=== PATIENT | female | born 1990 | race Caucasian/White ===

== ENCOUNTER 2017-07-31 18:01 | Emergency (ER) | payer MEDICAID, SELFPAY ==
[2017-07-31 18:02] VITALS: BP 145/74; PULSE 74; RESP 15; TEMP 36.7; O2SAT 100; BMI 25.7
--- NOTE | 2017-07-31 18:13 | ED.DCSUM_ITS ---
- ER Visit Summary Date of Service: 07/31/17 Chief Complaint: [] Vertigo History of Present Illness: The patient is a 26 F [complaining of vertigo since earlier today. She was at a music festival for the last 3 days. The room is been spinning with movements of her head. She took meclizine this morning and afternoon with good relief. She wanted to make sure her eardrums were okay. She still has some mild residual vertigo. Denies any other symptoms.] Physical Examination: [] Vital signs reviewed General: Well-nourished well-developed Head: Normocephalic atraumatic Eyes: Pupils equal round and reactive to light extraocular movements intact ENT: TMs clear no hemotympanum no trauma. TMs appear normal bilateral Neck: Nontender full range of motion Cardiovascular: Regular rate rhythm no murmurs normal S1-S2 Respiratory: No distress clear to auscultation bilaterally chest nontender Abdomen: Soft nontender nondistended normal bowel sounds no masses Back: Nontender no CVA tenderness Extremities: Nontender active range of motion ?4 extremities no trauma Skin: Normal color no trauma Neuro alert oriented cranial nerves II through XII intact normal strength sensation reflexes Test Results: [] Emergency Department Course and Treatment: [] Patient given 1 dose of Valium. Last year she was here for the same and volume meclizine combination helped. This is peripheral in nature. The music could have brought this on as well. It could be had otolith. I do not feel she needs imaging studies. Will follow- up. Treatment Plan: [] Disposition: [] Impression: [] Acute peripheral vertigo This note was generated with [employer] dictation software. It may contain incorrect words, spelling, and punctuation that were not noted in review of the chart prior to signing ED Disposition - Plan for ED Patient: Chief Complaint: Dizziness Referrals: Unique Combs MD [Primary Care Provider] -
--- NOTE | 2017-07-31 18:13 | ED.DEP ---
ED Disposition - Plan for ED Patient: Disposition: Home or Assisted Living Chief Complaint: Dizziness Instructions: ED BPV Vertigo Referrals: Unique Combs MD [Primary Care Provider] -
[2017-07-31] MEDS: diazePAM 5 MG Tablet PO (18:25)
== END 2017-07-31 18:26 | disposition home or self-care (01) ==
PROVIDERS: Emergency Provider Emergency Medicine; Family Provider Internal Medicine; PCP Internal Medicine
DX: H81.399 Other peripheral vertigo, unspecified ear (principal)
CPT/HCPCS: 99283

== ENCOUNTER 2017-10-06 05:54 | Emergency (ER) | payer SELFPAY ==
[2017-10-06 05:55] VITALS: BP 124/73; PULSE 78; RESP 15; TEMP 36.7; O2SAT 100; BMI 27.3
[2017-10-06] MEDS: Aspirin 81 MG TAB.CHEW 324 MG PO (06:10)
[2017-10-06 06:15] LABS: Absolute Lymphocyte Count 2.31 X10^3/ul (0.83-4.51); Basophil# 0.04 X10^3/uL; Basophil% 0.4 % (0-1); Eosinophil# 0.15 X10^3/uL; Eosinophils% 1.6 % (0-5); Hematocrit 41.7 % (37-47); Hemoglobin 13.9 g/dl (12.0-15.0); Lymphocyte # 2.31 X10^3/ul (4.0); Lymphocyte % 25.4 % (19-41); Mean Corp Hgb Conc 33.3 g/gl (32-36); Mean Corpuscular Hgb 29.3 pg (27.0-32.0); Mean Corpuscular Volume 87.8 fL (81-99); Mean Platelet Vol. 9.7 fl (6.2-12.0); Monocyte% 6.6 % (0-10); Neutrophil % 65.9 % (47-70); Platelet Count 244 K/mm3 (150-450); RBC Distribution Width CV 13.1 % (11.6-14.6); RBC Distribution Width SD 41.8 fl (35.1-43.9); Red Blood Count 4.75 M/mm3 (4.2-5.4); White Blood Count 9.1 K/mm3 (4.4-11.0)
[2017-10-06 06:20] LABS: POSITIVE COUNT NO; POSITIVE DIFFERENTIAL NO; POSITIVE MORPHOLOGY NO
[2017-10-06 06:27] LABS: D-Dimer Quantitative (DVT/PE) 0.41 FEU/ug/m (0.27-0.49)
[2017-10-06 06:30] LABS: Anion Gap 9 (5-15); BUN 12 mg/dL (7-18); BUN/Creat Ratio 17.5 RATIO (10-20); Calcium,Total 9.2 mg/dL (8.5-10.1); Chloride 107 mmol/L (98-107); Creatinine, Serum 0.68 mg/dL (0.55-1.02); EST Glomerular Filtration Rate 109 mL/min (>60); Est Glom Filt Rate - Afr Amer 132 mL/min (>60); Estimated Creatinine Clearance 98.29 ml/min; Glucose 98 mg/dL (74-106); Potassium 3.8 mmol/L (3.5-5.1); Sodium Level 140 mmol/L (136-145)
--- NOTE | 2017-10-06 06:34 | ED.VISSUMM ---
- ER Visit Summary Date of Service: 10/06/17 Chief Complaint: [Chest pain] History of Present Illness: The patient is a 26 F [presents to the emergency department complaint of chest pain that started about an hour prior to coming in. Patient describes a sharp stabbing pain in the left side of her chest, radiated towards the upper chest. Patient felt somewhat short of breath with it. Pain was worse with breathing. Initially the pain was severe and she got very nervous and scared. Patient states the pain is now just a mild dull ache that she rates a 3 out of 10. Patient has had chest pains in the past with anxiety attacks. Patient denies recent travel or surgery. There is no family history of heart disease.] Physical Examination: [HEENT-PERRLA, EOMI. Cranial nerves II through XII grossly intact. TMs clear. Mucous membranes moist. No adenopathy. Cardiovascular-regular rate and rhythm without murmur or ectopy Lungs-clear to auscultation, chest wall stable without crepitus or subcu emphysema Abdomen-normoactive bowel sounds, soft, nontender, no rebound or rigidity, no peritoneal signs. Extremities-intact ?4, normal range of motion, normal pulses, atraumatic] Test Results: [EKG obtained on arrival showed a sinus rhythm with a ventricular rate of 66 bpm with occasional PACs. CBC with it was normal. Chemistries were normal. Troponin was less than 0.015. D-dimer was normal at 0.41. Chest x-ray was normal.] Emergency Department Course and Treatment: [Patient did not want anything for her discomfort. Patient has no risk factors for coronary artery disease. I feel patient can be safely discharged home. Patient to follow-up with her primary care physician 3-5 days.] Treatment Plan: [Follow-up with primary care physician 3-5 days] Disposition: [Discharged home in stable condition] Impression: [Chest wjhq-vvqmtqhu-nuqsqzgo uncertain] This note was generated with [employer] software. It may contain incorrect words, spelling, and punctuation that were not noted in review of the chart prior to signing ED Disposition - Plan for ED Patient: Chief Complaint: Chest Pain Referrals: Unique Combs MD [Primary Care Provider] -
--- NOTE | 2017-10-06 06:37 | ED.DEP ---
ED Disposition - Plan for ED Patient: Chief Complaint: Chest Pain Instructions: ED Chest Pain Atypical Unkn Cause Referrals: Unique Combs MD [Primary Care Provider] - 3-5 Days
[2017-10-06 06:53] VITALS: BP 119/86; PULSE 77; RESP 16; O2SAT 100
== END 2017-10-06 06:53 | disposition home or self-care (01) ==
LOC: ED 06:18
PROVIDERS: Emergency Provider Emergency Medicine; Family Provider Internal Medicine; PCP Internal Medicine
DX: R07.89 Other chest pain (principal); R06.00 Dyspnea, unspecified; I49.1 Atrial premature depolarization; J45.909 Unspecified asthma, uncomplicated; F41.9 Anxiety disorder, unspecified
CPT/HCPCS: 71045; 80048; 84484; 85025; 85379; 93005; 99285; A4216

== ENCOUNTER 2018-08-31 16:20 | Emergency (ER) | payer OTHER, MEDICAID, SELFPAY ==
[2018-08-31 16:20] VITALS: BP 138/86; PULSE 112; RESP 18; TEMP 36.2; O2SAT 98; BMI 30.1
--- NOTE | 2018-08-31 16:23 | EKG12_ITS ---
Test Reason : PALPITATIONS Blood Pressure : / mmHG Vent. Rate : 090 BPM Atrial Rate : 090 BPM P-R Int : 134 ms QRS Dur : 082 ms QT Int : 352 ms P-R-T Axes : 041 065 040 degrees QTc Int : 430 ms Normal sinus rhythm Normal ECG Confirmed by GURINDER CANCINO, SHRUTHI ([id number]), editorial cartoonist SIMEON SAENZ ([id number]) on 09/04/2018 12:54:31 PM Referred By: BB Confirmed By:SHRUTHI FAIRCHILD MD
--- NOTE | 2018-08-31 17:10 | ED.VIS.GEN ---
History of Present Illness Chief Complaint: Palpitations Informant: Patient Onset: Month(s) - several Context: Sudden Onset Timing: Intermittent, Lasts - 20-30 min today Quality: heart skipping Location: chest Current Severity: gone Maximum Severity: Moderate Worsened by: nothing in particular Relieved by: nothing in particular Associated Symptoms: lightheaded today Narrative: Patient has been having these symptoms intermittently, associated with no lightheadedness or chest discomfort or dyspnea, but today it was more persistent and making her feel lightheaded. She called her OB and was referred to the emergency department. She has never had this prior to being , she is 38 weeks, feeling the baby move, has had no complications with her so far, and has no pelvic or abdominal symptoms at this time. She states on the way to the ER, the palpitations stopped and she now feels back to normal. She has no known history of heart problems. - Past Medical History (1) Asthma Status: Chronic Past Medical History - Allergies and Home Meds Allergies/Adverse Reactions: Allergies azithromycin [From Zithromax Z-Jay] Allergy (Verified 08/31/18 16:22) Rash Primary Care Physician: Unique Combs MD [Primary Care Provider] - Lives: With Family Smoking Status: Never smoker Review of Systems General: Denies: Chills, Fever, Sweats Eyes: Denies: Visual changes - bilaterally, Diplopia ENT: Denies: Rhinorrhea, Sore throat Cardiovascular: Reports: Palpitations. Denies: Chest pain Respiratory: Denies: Dyspnea, Cough, Dyspnea on exertion Gastrointestinal: Denies: Abdominal pain, Nausea, Vomiting, Diarrhea, Melena, Hematochezia Genitourinary: Denies: Dysuria, Hematuria, Frequency Musculoskeletal: Denies: Back pain, Swelling, Extremity Pain Skin: Denies: Rash, Wounds Neurological: Denies: Headache, Weakness, Numbness Physical Exam Vital Signs/Narrative: Vital Signs Temp Pulse Resp BP Pulse Ox 08/31/18 16:20 97.1 F L 112 H 18 138/86 H 98 Inital Vital Signs reviewed: Yes General: Well nourished, Well developed, No Acute Distress Head: Normocephalic, Atraumatic Eyes: Perrl, EOMI ENT: Moist mucous membranes, No rhinorrhea Neck: Supple, Nontender, No JVD Cardiovascular: Regular rate, Regular rhythm, No murmurs, Normal S1, Normal S2 Respiratory: No distress, CTA bilaterally, Chest nontender Abdomen: Soft, Nontender, Normal bowel sounds, - - Gravid uterus, nontender Back: Nontender, Normal Inspection Extremities: Nontender, No edema. Negative for: Calf Tenderness Skin: Normal color, No rash, No Trauma Neurological: Alert, Oriented x3, Cranial nerves II-XII grossly intact, Normal Strength, Normal Sensation Psychological: Normal affect, Normal Mood Diagnostic/Tx/Re-eval Laboratory Results 08/31/18 08/31/18 17:30 17:30 WBC 10.9 RBC 4.30 Hgb 12.1 Hct 37.1 MCV 86.3 MCH 28.1 MCHC 32.6 RDW Std Deviation 49.1 H RDW Coeff of Eliseo 15.6 H Plt Count 205 MPV 9.6 Immature Gran % (Auto) 1.100 H Neut % (Auto) 78.9 H Lymph % (Auto) 13.8 L Moore % (Auto) 5.5 Eos % (Auto) 0.5 Baso % (Auto) 0.2 Absolute Neuts (auto) 8.6 H Absolute Lymphs (auto) 1.51 Absolute Nucleated RBC 0.00 Nucleated RBC % 0 Sodium 136 Potassium 3.6 Chloride 106 Carbon Dioxide 22.0 Anion Gap 8 BUN 5 L Creatinine 0.63 Estim Creat Clear Calc 109.98 Est GFR (MDRD) Af Amer 143 Est GFR (MDRD) Non-Af 118 BUN/Creatinine Ratio 7.9 L Glucose 116 H Calcium 9.3 - Rhythm Strip Rhythm Strip: Sinus Rhythm Rate: 90 Ectopy: None - EKG Initial EKG Interpretation: Sinus Rhythm, No Acute Injury Pattern - No ectopy. Normal axis. Normal EKG. Prior: Unchanged - Medical Decision Making Patient had no symptoms while she was in the emergency department, she did maintain on telemetry. Her EKG is normal. Her letter lites are normal. I discussed with Dr. Fernández with cardiology who recommended a Holter monitor close outpatient follow-up. She is comfortable with that plan. We will place one here. ED Disposition - Plan for ED Patient: Disposition: Home or Assisted Living Diagnosis: Palpitations Instructions: Palpitations Referrals: Alli Fernández MD [STAFF PHYSICIAN] - 1 Week (call for appt)
[2018-08-31 17:36] LABS: Absolute Lymphocyte Count 1.51 X10^3/uL (0.83-4.51); Absolute Neutrophil Count 8.6 X10^3/uL (2.0-7.7); Basophil# 0.02 X10^3/uL; Basophil% 0.2 % (0-1); Eosinophil# 0.05 X10^3/uL; Eosinophils% 0.5 % (0-5); Hematocrit 37.1 % (37-47); Hemoglobin 12.1 g/dL (12.0-15.0); Lymphocyte # 1.51 X10^3/ul (4.0); Lymphocyte % 13.8 % (19-41); Mean Corp Hgb Conc 32.6 g/dL (32-36); Mean Corpuscular Hgb 28.1 pg (27.0-32.0); Mean Corpuscular Volume 86.3 fL (81-99); Mean Platelet Vol. 9.6 fl (6.2-12.0); Monocyte% 5.5 % (0-10); NRBC Flagged by Analyzer 0 % (0-5); Neutrophil # 8.62 X10^3/uL (2.7-7.7); Neutrophil % 78.9 % (47-70); Platelet Count 205 K/mm3 (150-450); RBC Distribution Width CV 15.6 % (11.6-14.6); RBC Distribution Width SD 49.1 fl (35.1-43.9); White Blood Count 10.9 K/mm3 (4.4-11.0)
[2018-08-31 17:55] LABS: Anion Gap 8 (5-15); BUN 5 mg/dL (7-18); BUN/Creat Ratio 7.9 RATIO (10-20); Calcium,Total 9.3 mg/dL (8.5-10.1); Chloride 106 mmol/L (98-107); Creatinine, Serum 0.63 mg/dL (0.55-1.02); EST Glomerular Filtration Rate 118 mL/min (>60); Est Glom Filt Rate - Afr Amer 143 mL/min (>60); Estimated Creatinine Clearance 109.98 ml/min; Glucose 116 mg/dL (74-106); Potassium 3.6 mmol/L (3.5-5.1); Sodium Level 136 mmol/L (136-145)
[2018-08-31 18:08] VITALS: PULSE 95; RESP 18; O2SAT 100
--- NOTE | 2018-08-31 19:06 | NURSING ---
PAGED CARDIOLOGY AT [id number]
--- NOTE | 2018-08-31 19:57 | NURSING ---
REPAGED CARDIOLOGY AT 1955
[2018-08-31 21:33] VITALS: BP 132/84; PULSE 77; RESP 20
== END 2018-08-31 21:34 | disposition home or self-care (01) ==
PROVIDERS: Emergency Provider Emergency Medicine; Family Provider Internal Medicine; PCP Internal Medicine
DX: O26.893 Other specified pregnancy related conditions, third trimester (principal); R00.2 Palpitations; R42 Dizziness and giddiness; O99.513 Diseases of the respiratory system complicating pregnancy, third trimester; J45.909 Unspecified asthma, uncomplicated; Z3A.38 38 weeks gestation of pregnancy
CPT/HCPCS: 80048; 85025; 93005; 99283

== ENCOUNTER → 2018-08-31 | Outpatient (CLI) | payer OTHER, MEDICAID, SELFPAY ==
[2018-08-31 16:20] VITALS: BMI 30.1
== END | disposition home or self-care (01) ==
LOC: PSN 21:37
PROVIDERS: Family Provider Internal Medicine; PCP Internal Medicine; Referring Provider Emergency Medicine; Visit Provider Emergency Medicine
DX: R00.2 Palpitations (principal)
CPT/HCPCS: 93225; 93226

== ENCOUNTER → 2018-09-06 | Outpatient (CLI) | payer OTHER, MEDICAID, SELFPAY ==
[2018-09-06 13:31] VITALS: BMI 30.1
[2018-09-06 16:36] LABS: ALB/GLOB Ratio 0.6 RATIO (0.9-2.4); AST(SGOT) 22 U/L (15-37); Alanine Aminotransfer ALT/SGPT 16 U/L (13-56); Albumin, Serum 2.7 g/dL (3.2-5.0); Alkaline Phosphatase 222 U/L (45-117); Anion Gap 6 (5-15); BUN 8 mg/dL (7-18); BUN/Creat Ratio 12.6 RATIO (10-20); Chloride 105 mmol/L (98-107); Creatinine, Serum 0.64 mg/dL (0.55-1.02); EST Glomerular Filtration Rate 117 mL/min (>60); Est Glom Filt Rate - Afr Amer 142 mL/min (>60); Free T3 2.6 pg/mL (2.18-3.98); Globulin 4.3 g/dL (2.2-4.2); Glucose 90 mg/dL (74-106); Magnesium 1.8 mg/dL (1.6-2.6); Potassium 3.6 mmol/L (3.5-5.1); Sodium Level 137 mmol/L (136-145); T4 Total, Thyroxin 11.5 ug/dL (4.8-13.9); Thyroid Stim Hormone (TSH) 1.42 uIU/mL (0.358-3.74)
== END | disposition home or self-care (01) ==
LOC: LAB 14:17
PROVIDERS: Family Provider Internal Medicine; PCP Internal Medicine; Referring Provider Specialist; Visit Provider Specialist
DX: R00.2 Palpitations (principal)
CPT/HCPCS: 36415; 80053; 83735; 84436; 84443; 84481

== ENCOUNTER 2018-09-08 06:30 | Inpatient (IN) | payer OTHER, MEDICAID, SELFPAY ==
[2018-09-06 13:31] VITALS: BMI 30.1
[2018-09-08 06:20] VITALS: BMI 34.2
[2018-09-08 06:31] LABS: ROM Internal Control Test YES-OK TO RESULT pt. (Internal QC)
[2018-09-08 06:32] LABS: ROM Patient Test POSITIVE (Negative)
[2018-09-08] MEDS: Lactated Ringers 1,000 ML 50 ML IV ×3 (07:05→14:41)
[2018-09-08 07:12] VITALS: BMI 34.2
[2018-09-08] MEDS: 0.9% Saline Lock 10 ML Syringe IV ×2 (07:42→18:51)
[2018-09-08 08:00] LABS: Absolute Lymphocyte Count 1.68 X10^3/uL (0.83-4.51); Basophil# 0.04 X10^3/uL; Basophil% 0.3 % (0-1); Eosinophil# 0.06 X10^3/uL; Eosinophils% 0.5 % (0-5); Hematocrit 39.2 % (37-47); Lymphocyte # 1.68 X10^3/ul (4.0); Lymphocyte % 14.2 % (19-41); Mean Corp Hgb Conc 33.2 g/dL (32-36); Mean Corpuscular Hgb 28.6 pg (27.0-32.0); Mean Corpuscular Volume 86.3 fL (81-99); Mean Platelet Vol. 10.2 fl (6.2-12.0); Monocyte# 0.86 X10^3/uL; Monocyte% 7.3 % (0-10); NRBC Flagged by Analyzer 0 % (0-5); Neutrophil # 9.04 X10^3/uL (2.7-7.7); Neutrophil % 76.5 % (47-70); Platelet Count 226 K/mm3 (150-450); RBC Distribution Width CV 15.4 % (11.6-14.6); RBC Distribution Width SD 48.7 fl (35.1-43.9); Red Blood Count 4.54 M/mm3 (4.2-5.4); White Blood Count 11.8 K/mm3 (4.4-11.0)
--- NOTE | 2018-09-08 08:34 | PCM.HP.OB ---
History Date of Admission: 09/08/18 Final BRITTNEE: 09/13/18 Gestational age: 39 Weeks and 2 Days History of this : This is a 27 year-old, G [], P [], at 39 weeks gestational age. Medical History: Medical History (Last Reviewed 09/06/18 @ 14:15 by Alli Fernández MD) 39 weeks gestation of (Acute) Z3A.39 Palpitations (Acute) R00.2 Asthma (Chronic) J45.909 Anemia D64.9 Just finished with iron infusions Anxiety F41.9 Vertigo R42 Surgical History: Surgical History (Last Reviewed 09/06/18 @ 14:15 by Alli Fernández MD) History of dilatation and curettage Onset Date: ~2007 Z98.890 Allergies azithromycin [From Zithromax Z-Jya] Allergy (Mild, Verified 09/08/18 06:15) Rash Home Medications: Home Medications vitamin,calcium,ewxsucsd-hrtu-aqqkc acid tablet 1 tab PO DAILY 09/06/18 Aspirin, Baby 81 mg PO DAILY 09/08/18 Smoking Status: Never smoker Alcohol: None Heart Tracin with mod variability, accels TOCO Analysis: Q2-3 min History Past Pregnancies: Past Pregnancies Delivery Date Name GA/Weeks Outcome Route Weight Gender Labor Length Anesthesia Delivery Location Provider FOB Labs: See [facility] H&P Physical Exam General: Alert, Oriented x3 Abdomen: Soft, Non Tender, Non-Distended Neurological: Cranial nerves II-XII grossly intact Assessment/Plan All Active Problems (Last Reviewed 09/06/18 @ 14:15 by Alli Fernández MD) 39 weeks gestation of (Acute) Palpitations (Acute) This is a 27 year-old, G 5, P 2 , at 39 weeks gestational age. Admit to L&D Expectant management Pain - epidural when desired GBS negative EFW less than 4500g, patient with adequate pelvis
[2018-09-08] MEDS: fentaNYL-bupivacaine (epidural) 100 ML BAG EPIDURAL (10:07)
[2018-09-08] MEDS: Oxytocin 30 units/NS 500 ml 30 UNITS/500 ML IV.SOLN 334 UNITS IV (16:55)
[2018-09-08] MEDS: Oxytocin 30 units/NS 500 ml 30 UNITS/500 ML IV.SOLN 167 UNITS IV (17:25)
--- NOTE | 2018-09-08 17:56 | PCM.OPRPT ---
Report of Operation Date of Procedure: 09/08/18 Vaginal Delivery Maternal Presentation: Active Labor Amniotic Membrane Rupture Type: Spontaneous at home Amniotic Fluid Description: Clear Final BRITTNEE: 09/13/18 Gestational age: 39 Weeks and 2 Days Date of Procedure: 09/08/18 Pre-Operative Diagnosis: (1) SROM (2) Labor Post-Operative Diagnosis: Same Surgery/ Procedure Performed: Spontaneous Vaginal Delivery Type of Anesthesia: Epidural Description of Procedure: Patient prepped & draped in stirrups when C/C/+1. She pushed to deliver the head. head was gently guided to allow delivery of anterior & posterior shoulders. No excess traction placed on head. Body delivered & infant placed on maternal abdomen. 3VC clamped & cut in delayed fashion. Placenta delivered with gentle traction & good uterine tone obtained. Presentation: LELIA Placental Delivery Description: Expressed Placenta Disposition: [facility] Cord Entanglement: None Drain: Chapa to straight drain Estimated Blood Loss: 200ml A gender: Female - Mckenna (1 minute): 9 (5 minute): 9 Episiotomy Description: None Laceration: 1st degree - vaginal - repaired wit 3-0 vicryl Medications given after delivery: IV Pitocin Complications: None
[2018-09-08] MEDS: Ibuprofen 600 MG Tablet PO (22:57)
[2018-09-08 23:05] VITALS: BP 136/91; PULSE 94; RESP 18; TEMP 36.9
[2018-09-09 04:16] VITALS: BP 118/71; PULSE 85; RESP 16; TEMP 36.6; O2SAT 97
[2018-09-09 08:43] VITALS: BP 105/50; PULSE 88; RESP 16; TEMP 37
--- NOTE | 2018-09-09 09:09 | DCINST_ITS ---
Discharge Diet: No Restrictions Discharge Activity: May Not Drive, May Shower May resume sexual activity in: 6 weeks Weight Bearing Status: Weight bearing as tolerated Additional Instructions: If you experience any of the following, contact your healthcare provider. * Bleeding that soaks a pad every hour for 2 hours * Fever 100.4 or higher * Unrelieved incision or abdominal pain * Swelling, redness, discharge or bleeding from your incision or episiotomy site * Your incision begins to separate * Problems urinating (including inability to urinate or burning while urinating). * Visual changes * Severe headache * Flu-like symptoms * Pain or redness in one of both of your breasts * Pain, warmth, tenderness or swelling in your legs, especially the calf area * Frequent nausea and vomiting * Symptoms of depression or anxiety If you experience any of the following, call 911 or go to the nearest Emergency Room. * Chest pain * Problems breathing * Seizure activity * Partial or complete paralysis of a body part, slurred speech, weakness or drooping of the face, or a sudden inability to walk or hold your balance Allergies/Adverse Reactions: Allergies azithromycin [From Zithromax Z-Jay] Allergy (Mild, Verified 09/08/18 06:15) Rash Medications to take at Discharge vitamin,calcium,huxwdxhz-ioqh-gfaux acid tablet 1 tab PO DAILY 09/06/18 Primary Care Physician: Unique Combs MD [Primary Care Provider] - Test Results: Test results from this visit will be discussed in further detail at your follow- up appointment, if applicable.
--- NOTE | 2018-09-09 09:09 | PCM.DCVAG ---
Discharge Diet: No Restrictions Discharge Activity: May Not Drive, May Shower May resume sexual activity in: 6 weeks Weight Bearing Status: Weight bearing as tolerated Additional Instructions: If you experience any of the following, contact your healthcare provider. Bleeding that soaks a pad every hour for 2 hours Fever 100.4 or higher Unrelieved incision or abdominal pain Swelling, redness, discharge or bleeding from your incision or episiotomy site Your incision begins to separate Problems urinating (including inability to urinate or burning while urinating). Visual changes Severe headache Flu-like symptoms Pain or redness in one of both of your breasts Pain, warmth, tenderness or swelling in your legs, especially the calf area Frequent nausea and vomiting Symptoms of depression or anxiety If you experience any of the following, call 911 or go to the nearest Emergency Room. Chest pain Problems breathing Seizure activity Partial or complete paralysis of a body part, slurred speech, weakness or drooping of the face, or a sudden inability to walk or hold your balance Allergies/Adverse Reactions: Allergies azithromycin [From Zithromax Z-Jay] Allergy (Mild, Verified 09/08/18 06:15) Rash Medications to take at Discharge vitamin,calcium,mkjytivb-gihr-bkska acid tablet 1 tab PO DAILY 09/06/18 Primary Care Physician: Unique Combs MD [Primary Care Provider] - Test Results: Test results from this visit will be discussed in further detail at your follow-up appointment, if applicable.
--- NOTE | 2018-09-09 09:10 | PCM.PN.OB ---
Subjective: No complaints - Physical Exam General: Alert, Oriented x3 Abdomen: Soft, Non Tender, Non-Distended - ff mid & below umb Extremities: No Calf Tenderness Vital Signs Temp Pulse Resp BP Pulse Ox 98.6 F 88 16 105/50 L 97 09/09/18 08:43 09/09/18 08:43 09/09/18 08:43 09/09/18 08:43 09/09/18 04:16 Oxygen Delivery Method Room Air Weight: 187 lb 6.287 oz Body Mass Index (BMI) 34.2 Intake and Output for Last 24 Hours 09/07/18 09/08/18 09/09/18 23:59 23:59 23:59 Output Total 500 / 500 Balance -500 / -500 Laboratory Tests Past 24 Hrs 09/08/18 07:05 Blood Type O POSITIVE Antibody Screen NEGATIVE Medical Necessity - Tobacco Use Smoking Status: Never smoker Assessment/Plan All Active Problems (Last Reviewed 09/06/18 @ 14:15 by Alli Fernández MD) 39 weeks gestation of (Acute) Palpitations (Acute) PPD#1 D/c home later today
--- NOTE | 2018-09-09 11:30 | CASEMGMT ---
Social Work Referral Date: 09/09/18 Date of Assessment: 09/09/18 Reason for Consult: Mother of baby (MOB) with history of anxiety Informant: Nursing staff Personal Status Mentation: MOB A&Ox3 Present during assessment: MOB and Infant Hx : 5 Hx Para: 3 Infant Gender: Female Name: Clarisa Spain (1min): 9 (5min): 9 Care: Adequate Alleged father: Chun Spain Alleged father involved: Yes Length of Relationship with alleged father of baby: 2 years FOB Mental Health/AOD/Domestic Violence Hx: MOB denies any history of mental health, abuse, or substance abuse for father of baby (FOB). FOB Employment: [employer] Full-time. Number of Children in the home: This will be third child for MOB. This infant will be younger sister to Dat Castro age 9 and Rocio Castro age 6. Dat and Rocio do not share paternity with this infant. Custody Comments: MOB has custody of Dat and Rocio Castro. MOB reporting to have shared custody with Zac's father. MOB's mother has Dat and Rocio while MOB, FOB and infant are in hospital. Living Arrangements: CISCO, Rocio Daugherty, this , and FOB all live in private home together. Education: High School Diploma Employment: [employer] Family Dynamics/Relationships: MOB reporting to now be from Zac's father and to have no safety concerns. MOB denies any history of physical abuse. MOB reporting to feel safe with FOB. Supports: MOB identifying FOB as a major support person as well as MOB and FOB's families. MOB reporting that MOB's mother lives down the street and is able to assist as needed throughout the next week and through the transition of having new family member. Transportation: MOB identifying no concerns. Substance Abuse Hx and Current Pattern of Use MOB denies any substance abuse history. Mental Health Hx and Current Status MOB reporting to have a history of anxiety and panic attacks. MOB reporting to have been taking something to manage anxiety prior to but to have discontinued medication once MOB discovered . MOB denies any suicidal thoughts or history of. MOB reporting to have had some martial counseling in the past, but nothing specific for anxiety. MOB denies any history of depression with prior pregnancies. Items/Skills List for Infants Care Supplies: MOB reporting to have all needed supplies within the home (crib, clothing, car seat, etc.). Bonding With Infant: MOB reporting to have a connection with infant. MOB often tearful when gazing towards infant, stating I just lover her so much. Observed Maternal/Paternal Child interaction: in bassinet during assessment. MOB gazing often towards . MOB noted to be tearful when speaking towards or about infant. Emotional Assessment: MOB presenting with a positive affect. As stated above, MOB was tearful at times when speaking about . MOB engaged in conversation with this social media editor and thanked this social media editor for checking in with MOB. Control: the pill. Resources JFS: N/A WIC: N/A People to People: N/A Community Action: N/A Help Me Grow: MOB might make a self referral, MOB wanted to discuss with FOB. Children Protective Services Hx: No history per MOB. Intervention Social Work assessment Resources for safe sleeping, depression, [facility] Resources, shaken baby, and Help Me Grow. Assessment Met with MOB and infant in room. MOB reporting that FOB had to return to work for a few hours this morning. MOB reporting that FOB is supportive and excited about infant. MOB stating that was not planned but accepted. MOB noted to be tearful when speaking about infant. This social media editor acknowledging MOB's tearfulness when speaking towards or about infant and many possible emotions during/after . MOB not sure if MOB undecided about beginning medication again to manage anxiety, but stating to most likely plan to begin medication again. MOB aware to continue to be in open communication with patient primary care physician about MOB's mental health status. MOB able to identify the importance of maintaining a health mental health status to care of self and family. MOB reporting to have lots of support and that MOB's mother is able to come and assist with children at anytime if MOB would need assistance or just some time away. This social media editor encouraging MOB to have a discussion with PCP about mental and and any emotions that MOB is having. MOB expressing understanding. MOB declines any counseling referrals at this time. MOB provided with list of counseling agencies in the [facility]. Updated nursing staff on social work note. Plan: This infant to discharge to home with MOB, FOB, Dat and Rocio. [employer] MACHINE, JAMES
[2018-09-09 12:30] VITALS: BP 127/70; PULSE 82; RESP 16; TEMP 36.8
[2018-09-09] MEDS: Ibuprofen 600 MG Tablet PO (12:30)
[2018-09-09 17:42] VITALS: BP 121/75; PULSE 72; RESP 16; TEMP 36.4
[2018-09-09 20:30] VITALS: BP 123/73; PULSE 75; RESP 18; TEMP 36.3; O2SAT 99
[2018-09-10 02:55] VITALS: BP 128/78; PULSE 85; RESP 16; TEMP 36.2
[2018-09-10] MEDS: Ibuprofen 600 MG Tablet PO (06:26)
--- NOTE | 2018-09-10 07:46 | PCM.PN.OB ---
Subjective: No complaints - Physical Exam General: Alert, Oriented x3 Abdomen: Soft, Non Tender, Non-Distended - ff mid & below umb Vital Signs Temp Pulse Resp BP Pulse Ox 97.2 F L 85 16 128/78 H 99 09/10/18 02:55 09/10/18 02:55 09/10/18 02:55 09/10/18 02:55 09/09/18 20:30 Oxygen Delivery Method Room Air Weight: 187 lb 6.287 oz Body Mass Index (BMI) 34.2 Intake and Output for Last 24 Hours 09/08/18 09/09/18 09/10/18 23:59 23:59 23:59 Output Total 500 / 500 Balance -500 / -500 Medical Necessity - Tobacco Use Smoking Status: Never smoker Assessment/Plan All Active Problems (Last Reviewed 09/06/18 @ 14:15 by Alli Fernández MD) 39 weeks gestation of (Acute) Palpitations (Acute) PPD#2 D/c home
[2018-09-10 08:15] VITALS: BP 124/80; PULSE 79; RESP 16; TEMP 37.1
== END 2018-09-10 09:15 | disposition home or self-care (01) | DRG 807 ==
LOC: WP 06:36 → WPOUT 06:36
PROVIDERS: Admitting Provider Obstetrics & Gynecology; Family Provider Internal Medicine; PCP Internal Medicine; Referring Provider Obstetrics & Gynecology; Visit Provider Obstetrics & Gynecology
DX: O70.0 First degree perineal laceration during delivery (principal); Z37.0 Single live birth; Z3A.39 39 weeks gestation of pregnancy
CPT/HCPCS: 59025; 59050; 84112; 85025; 86850; 86900; 99218; J7120; A4216; G0378

== ENCOUNTER → 2018-10-06 | Outpatient (CLI) | payer OTHER, MEDICAID, SELFPAY ==
[2018-09-08 07:12] VITALS: BMI 34.2
--- NOTE | 2018-10-06 09:15 | ECHOD_ITS ---
Version 3 Reason For Study: Palpitations Procedure This was a 2D Doppler, Color Flow transthoracic echocardiogram. Exam performed in department. Left Ventricle Normal size and thickness. The estimated ejection fraction is 55 %. No evidence for diastolic dysfunction. No regional wall motion abnormalities noted. Right Ventricle Normal RV size. Normal systolic function. Atria Normal left atrium. Normal right atrium. No doppler evidence for ASD. Mitral Valve There is no mitral valve stenosis. No mitral valve insufficiency. Tricuspid Valve There is no tricuspid stenosis. Trivial tricuspid valve insufficiency. Unable to estimate RV systolic pressure due to insufficient tricuspid regurgitant envelope. Aortic Valve Trisinus/trileaflet aortic valve. There is no aortic stenosis. Trivial aortic valve insufficiency. Pulmonic Valve There is no pulmonic valvular stenosis. No pulmonic valve insufficiency. Great Vessels Normal aortic root. Pericardium/Pleural No pericardial effusion. MMode/2D Measurements & Calculations LVIDd: 4.9 cm IVSd: 0.85 cm LA dimension: 3.5 cm LVIDs: 3.0 cm LVPWd: 0.86 cm FS: 38.2 % LAV(MOD-bp): 35.0 ml LA A4 area: 14.6 cm2 RA A4 area: 13.0 cm2 LAV(MOD-bp) Indexed: 19.9 ml/m2 LAV(MOD-sp2): 33.3 ml LAV(MOD-sp4): 34.2 ml Time Measurements MV dec time: 0.23 sec Doppler Measurements & Calculations MV E max gustavo: 94.5 cm/sec Lat Peak E' Gustavo: 18.1 cm/sec Med Peak E' Gustavo: 9.9 cm/sec MV A max gustavo: 63.0 cm/sec E/E' lat: 5.2 E/E' med: 9.5 MV E/A: 1.5 MV V2 max: 88.3 cm/sec MV P1/2t max gustavo: 88.3 cm/sec Ao V2 max: 136.3 cm/sec MV max P.1 mmHg MV P1/2t: 67.7 msec Ao max P.4 mmHg MV V2 mean: 57.5 cm/sec MV dec slope: 382.1 cm/sec2 MV mean P.5 mmHg MVA(P1/2t): 3.2 cm2 MV V2 VTI: 22.0 cm LV V1 max: 120.8 cm/sec PA V2 max: 108.8 cm/sec TR max gustavo: 195.1 cm/sec LV V1 max P.8 mmHg TR max P.2 mmHg Interpretation Summary The estimated ejection fraction is 55 %. No evidence for diastolic dysfunction. Trivial aortic valve insufficiency. Ordering Physician: Alli Fernández Referring Physician: Alli Fernández Performed By: Oscar Gutierrez RCS
== END | disposition home or self-care (01) ==
LOC: CVS 09:13
PROVIDERS: Family Provider Internal Medicine; PCP Internal Medicine; Referring Provider Specialist; Visit Provider Specialist
DX: R00.2 Palpitations (principal)
CPT/HCPCS: 93306

== ENCOUNTER → 2019-02-13 11:00 | Outpatient (CLI) | payer OTHER, MEDICAID, SELFPAY ==
[2018-10-18 10:11] VITALS: BMI 30.5
== END ==
PROVIDERS: Family Provider Internal Medicine; PCP Internal Medicine; Referring Provider Specialist; Visit Provider Specialist
DX: I35.1 Nonrheumatic aortic (valve) insufficiency (principal); R00.2 Palpitations
CPT/HCPCS: 93225; 93226

== ENCOUNTER 2023-02-15 13:44 | Emergency (ER) | payer OTHER, SELFPAY ==
[2023-02-15 13:46] VITALS: BP 124/88; PULSE 129; RESP 22; TEMP 37.5; O2SAT 100; BMI 31.5
--- NOTE | 2023-02-15 13:53 | EKG12_ITS ---
Test Reason : TACHY Blood Pressure : / mmHG Vent. Rate : 114 BPM Atrial Rate : 114 BPM P-R Int : 142 ms QRS Dur : 082 ms QT Int : 328 ms P-R-T Axes : 069 097 060 degrees QTc Int : 452 ms Sinus tachycardia Rightward axis Borderline ECG Confirmed by GURINDER CANCINO, SHRUTHI ([id number]), medical transcription editor LORE MAYBERRY ([id number]) on 02/21/2023 10:24:17 AM Referred By: Confirmed By:SHRUTHI FAIRCHILD MD
[2023-02-15] MEDS: Ondansetron 4 MG/2 ML Vial IV (15:05)
[2023-02-15] MEDS: 0.9% Normal Saline (1000mL) 1,000 ML 999 ML IV (15:05)
[2023-02-15] MEDS: Acetaminophen 325 MG Tablet 650 MG PO (15:05)
--- NOTE | 2023-02-15 15:16 | EX.ED.DYSGE1 ---
HPI <MARIE Gonsalez - Last Filed: 02/15/23 17:31> History of Present Illness Chief Complaint: Nausea/Vomiting Narrative Narrative: Patient presenting today due to nausea, vomiting, and bodyaches that started last night. She has had multiple episodes of nausea and vomiting and is concerned that she could be dehydrated. She denies any sick contacts. She has not eaten anything out of the ordinary recently. She denies fever, chills, hematemesis, diarrhea, and abdominal pain. PFS <MARIE Gonsalez - Last Filed: 02/15/23 17:31> [facility] Medical History (Updated 02/15/23 @ 17:31 by MARIE Gonsalez) 39 weeks gestation of Anemia Anxiety Asthma Palpitations Vertigo Home Medications ondansetron 4 mg disintegrating tablet 4 mg PO Q8H PRN PRN Nausea #10 tabs 02/15/23 [Rx Last Taken Unknown] Allergy/AdvReac Type Severity Reaction Status Date / Time azithromycin Allergy Mild Rash Verified 02/15/23 13:45 [From Zithromax Z-Jay] Family History Aunt Diabetes Surgical History History of dilatation and curettage (~2007) Social History Smoking Status: Never smoker alcohol intake: never substance use type: does not use caffeine: Yes (occasionally) ROS <MARIE Gonsalez - Last Filed: 02/15/23 17:31> ROS ED Constitutional Constitutional ED: Denies chills or fever(s) Cardiovascular Cardiovascular: Denies chest pain Respiratory/Chest Respiratory/Chest: Denies cough or dyspnea Gastrointestinal Gastrointestinal: Reports nausea and vomiting; Denies abdominal pain, constipation or diarrhea Genitourinary Genitourinary ED: Denies dysuria, hematuria or urinary urgency Musculoskeletal Musculoskeletal: Denies arthralgias or myalgias Integumentary Denies rash Neurologic Neurologic: Denies weakness EXAM <MARIE Gonsalez - Last Filed: 02/15/23 17:31> Physical Exam Const Vital Signs: 02/15/23 13:46 02/15/23 17:26 Temperature 99.5 F H Temperature Source Temporal Pulse Rate 129 H 73 Respiratory Rate 22 H 15 Blood Pressure 124/88 H 121/67 H Blood Pressure Mean 100 85 Pulse Ox 100 98 Oxygen Delivery Method Room Air Positive well nourished, well developed and no apparent distress General Appearance ED: well developed HEENT Reports normocephalic and head/scalp atraumatic Mouth ED: Yes moist mucous membranes normal Eyes PERRL and EOMs intact bilaterally Neck full ROM and supple Chest Wall inspection of chest normal Resp normal respiratory effort and clear to auscultation bilaterally Cardio regular rate and regular rhythm GI soft to palpation, non-tender, non-distended and no masses Back/Spine normal ROM and normal to inspection Extremity normal to inspection and full ROM Neuro oriented x3, CN's II-XII intact bilaterally, moves all extremities, no focal motor deficits and no sensory deficits noted Sensorium / Orientation: awake and alert Psych mental status grossly normal and thought process normal Skin no rashes or lesions noted and no wounds <Dr. Markus Finnegan DO - Last Filed: 02/15/23 17:18> Physical Exam Const Vital Signs: 02/15/23 13:46 02/15/23 17:26 Temperature 99.5 F H Temperature Source Temporal Pulse Rate 129 H 73 Respiratory Rate 22 H 15 Blood Pressure 124/88 H 121/67 H Blood Pressure Mean 100 85 Pulse Ox 100 98 Oxygen Delivery Method Room Air MDM <MARIE Gonsalez - Last Filed: 02/15/23 17:31> [facility] Narrative Medical decision making narrative: Patient presenting with nausea and vomiting that started last night. She reports that she is concerned she could be dehydrated. She is slightly tachycardic at 129 bpm. She is slightly febrile. She will be given Tylenol, IV fluids, and Zofran. She will be given a p.o. challenge. Basic labs obtained and are unremarkable. She is not complaining of any abdominal pain, abdomen is soft and nontender on exam. On reexamination she is feeling much better, she is tolerating p.o. fluids. Her vital signs have improved. She will be given a prescription for Zofran and is to stay well-hydrated. I suspect that this is likely a viral illness. She is to follow-up with her PCP and will be discharged home in stable condition. She is comfortable with plan. This patient was seen with a PA/MORPHOLOGY TEACHER Individually assessed they patient including history and physical. I have reviewed everything on the chart that is available and agree with the documentation provided by the PA/MORPHOLOGY TEACHER including discussion about the assessment, treatment plan, discussion, and return precautions.Patient presenting with viral syndrome and concerned she is dehydrated. She was given IV fluids, Zofran. She is able to pass p.o. challenge. She is drinking Gatorade at this point. Vital signs have improved. Patient feels better. She will be discharged home with Zofran and given return precautions. Impression: 1. Viral syndrome 2. Nausea/vomiting 3. Diarrhea 4. Dehydration Lab Data Attestation: I reviewed the patient's lab results. Labs: Laboratory Results - last 24 hr 02/15/23 15:05 WBC 9.5 RBC 4.85 Hgb 13.0 Hct 41.0 MCV 84.5 MCH 26.8 L MCHC 31.7 L RDW Std Deviation 41.2 RDW Coeff of Eliseo 13.4 Plt Count 243 MPV 9.9 Immature Gran % (Auto) 0.300 Neut % (Auto) 87.3 H Lymph % (Auto) 6.1 L Mcclain % (Auto) 5.9 Eos % (Auto) 0.1 Baso % (Auto) 0.3 Absolute Neuts (auto) 8.3 H Absolute Lymphs (auto) 0.58 L Nucleated RBC % 0 Differential Comment SCANNED Sodium 136 Potassium 3.6 Chloride 109 H Carbon Dioxide 24.0 Anion Gap 3 L BUN 10 Creatinine 0.72 Estim Creat Clear Calc 87.90 Est GFR (MDRD) Af Amer 120 Est GFR (MDRD) Non-Af 99 BUN/Creatinine Ratio 13.9 Glucose 110 H Calcium 9.1 EKG Initial EKG: Comments: 114 bpm, sinus tachycardia, no ST elevation, reviewed and interpreted by attending ED physician <Dr. Markus Finnegan, DO - Last Filed: 02/15/23 17:18> [facility] MDM Narrative Medical decision making narrative: Patient presenting with nausea and vomiting that started last night. She reports that she is concerned she could be dehydrated. She is slightly tachycardic at 129 bpm. She is slightly febrile. She will be given Tylenol, IV fluids, and Zofran. She will be given a p.o. challenge. Basic labs obtained and are unremarkable. She is not complaining of any abdominal pain, abdomen is soft and nontender on exam. On reexamination she is feeling much better, she is tolerating p.o. fluids. She will be given a prescription for Zofran and is to stay well-hydrated. I suspect that this is likely a viral illness. She is to follow-up with her PCP and will be discharged home in stable condition. She is comfortable with plan. This patient was seen with a PA/MORPHOLOGY TEACHER Individually assessed they patient including history and physical. I have reviewed everything on the chart that is available and agree with the documentation provided by the PA/MORPHOLOGY TEACHER including discussion about the assessment, treatment plan, discussion, and return precautions.Patient presenting with viral syndrome and concerned she is dehydrated. She was given IV fluids, Zofran. She is able to pass p.o. challenge. She is drinking Gatorade at this point. Vital signs have improved. Patient feels better. She will be discharged home with Zofran and given return precautions. Impression: 1. Viral syndrome 2. Nausea/vomiting 3. Diarrhea 4. Dehydration Lab Data Labs: Laboratory Results - last 24 hr 02/15/23 15:05 WBC 9.5 RBC 4.85 Hgb 13.0 Hct 41.0 MCV 84.5 MCH 26.8 L MCHC 31.7 L RDW Std Deviation 41.2 RDW Coeff of Eliseo 13.4 Plt Count 243 MPV 9.9 Immature Gran % (Auto) 0.300 Neut % (Auto) 87.3 H Lymph % (Auto) 6.1 L Mcclain % (Auto) 5.9 Eos % (Auto) 0.1 Baso % (Auto) 0.3 Absolute Neuts (auto) 8.3 H Absolute Lymphs (auto) 0.58 L Nucleated RBC % 0 Differential Comment SCANNED Sodium 136 Potassium 3.6 Chloride 109 H Carbon Dioxide 24.0 Anion Gap 3 L BUN 10 Creatinine 0.72 Estim Creat Clear Calc 87.90 Est GFR (MDRD) Af Amer 120 Est GFR (MDRD) Non-Af 99 BUN/Creatinine Ratio 13.9 Glucose 110 H Calcium 9.1 Discharge Plan Triage Chief Complaint: Nausea/Vomiting ED Midlevel Provider: Cecily Wu ED Provider: Markus Finnegan Dx/Rx/DC Orders Clinical Impression: Nausea & vomiting, Viral illness, Dehydration Instructions: ED Vomiting (Adult) Prescriptions: New ondansetron 4 mg tablet,disintegrating 4 mg PO Q8H PRN PRN (Reason: Nausea) Qty: 10 0RF Primary Care Provider: Unique Combs Referrals: Unique Combs MD [Primary Care Provider] - 3-5 Days Activity Restrictions/Additional Instructions: Stay well-hydrated, return for any worsening of your symptoms. Follow-up with your PCP. Disposition Disposition: Home, Self Care Discharge Date/Time: 02/15/23 17:27
[2023-02-15 15:23] LABS: Absolute Lymphocyte Count 0.58 X10^3/uL (0.83-4.51); Absolute Neutrophil Count 8.3 X10^3/uL (2.0-7.7); Basophil# 0.03 X10^3/uL; Basophil% 0.3 % (0-1); Eosinophil# 0.01 X10^3/uL; Eosinophils% 0.1 % (0-5); Lymphocyte # 0.58 X10^3/ul (0.83-4.51); Lymphocyte % 6.1 % (19-41); Mean Corp Hgb Conc 31.7 g/dL (32-36); Mean Corpuscular Hgb 26.8 pg (27.0-32.0); Mean Corpuscular Volume 84.5 fL (81-99); Mean Platelet Vol. 9.9 fl (6.2-12.0); Monocyte# 0.56 X10^3/uL; Monocyte% 5.9 % (0-10); NRBC Flagged by Analyzer 0 % (0-5); Neutrophil # 8.31 X10^3/uL (2.7-7.7); Neutrophil % 87.3 % (47-70); POSITIVE DIFFERENTIAL YES; Platelet Count 243 K/mm3 (150-450); RBC Distribution Width CV 13.4 % (11.6-14.6); RBC Distribution Width SD 41.2 fl (35.1-43.9); Red Blood Count 4.85 M/mm3 (4.2-5.4); White Blood Count 9.5 K/mm3 (4.4-11.0)
[2023-02-15 15:26] LABS: Differential Indicated SCAN CRITERIA MET
[2023-02-15 15:42] LABS: Anion Gap 3 (5-15); BUN 10 mg/dL (7-18); BUN/Creat Ratio 13.9 RATIO (10-20); Calcium,Total 9.1 mg/dL (8.5-10.1); Chloride 109 mmol/L (98-107); Creatinine, Serum 0.72 mg/dL (0.55-1.02); EST Glomerular Filtration Rate 99 mL/min (>60); Est Glom Filt Rate - Afr Amer 120 mL/min (>60); Glucose 110 mg/dL (74-106); Potassium 3.6 mmol/L (3.5-5.1); Sodium Level 136 mmol/L (136-145)
[2023-02-15 17:15] LABS: Differential Comment SCANNED
[2023-02-15 17:26] VITALS: BP 121/67; PULSE 73; RESP 15; O2SAT 98
--- OUTSIDE RECORDS SUMMARY | 2023-02-15 17:55 | XMS RPT_ITS | CCD ---
Author Name Unknown Address [address] [place] [address] Organization [facility] Results Test Name Value Interpretation Reference Range Facil ity Progress note 02-18-2021 Note Date & Type Note Facility 02-18-2021 Note HNO ID: [id number] Author: Aimee Slater APRN.HANDBAG OPERATOR Service: ? Author Type: Nurse Practitioner Type: Progress Notes Filed: 02/18/2021 5:13 PM Note Text: CC: Patient presents with: Anxiety: Hx anxiety, increased x1 year Hair Loss: x 2 mths Mole: location neck area, irritation HPI Nelai Castro is a 30 year old female who presents today for above. Hair loss: present for over a year but a lot worse the past two months. She has noticed handfulls of hair when she washes it every other day. Hair has also thinned out quite a bit. Used to wear it up in a ponytail a lot but has been leaving it down. Denies frequent/harsh brushing, pulling hair out, styling with heat. No bald spots, scalp rash or itching. Does admit to increase in stress and some anxiety over the past year. Positive for fatigue. Denies weight gain/loss, cold or heat intolerance, constipation, diarrhea, palpitations, edema, excessively dry skin, polyuria, polydipsia, neck pain/pressure, trouble swallowing. She has also had a mole on the right side of her neck for a while now. Sometimes gets irritated and itchy. Has a lot of moles on her back as well that she plans on seeing a pattern technician for. REVIEW OF SYSTEMS See HPI PAST MEDICAL HISTORY Diagnosis Date - Anemia - Anxiety - Aortic valve insufficiency 10/18/2018 Following with [facility]. Repeat Echo 2 years - Asthma no asthma attacks in 3 years - Chronic tension headaches - Esophageal reflux - Mental disorder - Nonsustained ventricular tachycardia (HCC) 09/06/2018 captured during , following with [facility] - Palpitations - Preeclampsia PAST SURGICAL HISTORY Procedure Laterality Date - DANDC, DIAG AND/OR THERAPEUTIC 12/03/2007 Dilation AND curettage - PAST SURGICAL HISTORY OF TOOTH PULLED - REM LESION TRUNK,ARM, LEG <0.5 CM 07/26/2009 Exc. skin lesions x 3 - REM LESION TRUNK,ARM,LEG 0.6 -1.0CM 06/01/06 Exc. right upper chest and left upper back lesions ALLERGIES Azithromycin MEDICATIONS multivit with iron,minerals (MULTIVITAMIN AND MINERALS ORAL) Take by mouth. APPLE CIDER VINEGAR ORAL Take by mouth. COLLAGEN MISC Norethindrone, Contraceptive, (INCASSIA) 0.35 mg tablet Take 1 tablet by mouth once daily. FAMILY HISTORY Adopted: Yes Problem Relation Age of Onset - No Known Problems Mother - No Known Problems Father - No Known Problems Sister - No Known Problems Sister - No Known Problems Brother - No Known Problems Paternal Grandmother - No Known Problems Maternal Grandmother - No Known Problems Maternal Grandfather - Asthma Son Resolved - Diabetes Maternal Aunt - Heart Paternal Grandfather specifics unknown - other (CYSTIC FIBROSIS) Paternal Grandfather NIECE - No Known Problems Daughter - No Known Problems Daughter Social History Tobacco Use - Smoking status: Never Smoker - Smokeless tobacco: Never Used Vaping Use - Vaping Use: Never used Substance Use Topics - Alcohol use: Yes Comment: Occasionally - Drug use: No PHYSICAL EXAM BP 116/68 (BP Site: Left Arm, BP Position: Sitting) Pulse 78 Resp 16 Wt 71.7 kg (158 lb) LMP 01/23/2021 BMI 26.70 kg/m? General Appearance: well appearing, in no acute distress, alert Pysch: mood and affect broad and appropriate Skin: Skin color, texture, turgor normal for age. Eyes: conjunctiva pink and moist, no icterus, sclera white, non-injected Neck: Thyroid normal size and symmetric without palpable nodules, Neck supple, No adenopathy Lymph nodes: No supraclavicular lymphadenopathy Lungs: Lungs clear to auscultation. No wheezing, rhonchi, rales. Heart: RRR without murmur, gallop, or rubs. No ectopy Ext: no edema in LE bilaterally, good distal pulses ASSESSMENT/PLAN: 1. Hair loss - ICD9: 704.00, ICD10: L65.9 (primary diagnosis) Multiple possible etiologies. Work-up with: - TSH BLD - T4 FREE/FREE THYROX - T3 BLD - VITAMIN D 25 HYDROXY - CBC + DIFF - COMP METABOLIC PANEL Follow-up and further recommendations pending results 2. Fatigue, unspecified type - ICD9: 780.79, ICD10: R53.83 As above - TSH BLD - T4 FREE/FREE THYROX - T3 BLD - VITAMIN D 25 HYDROXY - CBC + DIFF - COMP METABOLIC PANEL 3. Skin lesion of neck - ICD9: 709.9, ICD10: L98.9 Consistent with skin tag. Patient will have pattern technician evaluate, does not need referral 4. Encounter for hepatitis C screening test for low risk patient - ICD9: V73.89, ICD10: Z11.59 - HEP C AB IA W/CONF SCRN Prescription instructions reviewed with patient as applicable. Potential red flag symptoms discussed with the patient. Reviewed appropriate action plan to take if red flag symptoms occur. Patient agreeable to treatment plan. Aimee Slater APRN.HANDBAG OPERATOR [facility] Summary Purpose Family History No Family History Records FoundNo Family History Records Found Advance Directives No Advanced Directives Records FoundNo Advanced Directives Records Found Additional Source Comments INFORMATION SOURCE (unrecogn ized section and content) DATE CREATED AUTHOR AUTHOR'S ORGANIZ ATION 04/10/2021 [facility] FOR RECORDS PERTAINING TO PATIENTS WHO ARE OR HAVE BEEN ENROLLED IN A CHEMICAL DEPENDENCY/SUBSTANCEABUSE PROGRAM, SOME INFORMATION MAY BE OMITTED. This clinical summary was aggregated from multiple sources. Caution should be exercised in using it in the provision of clinical care. This summary normalizes information from multiple sources, and as a consequence, information in this document may materially change the coding, format and clinical context of patient data. In addition, data may be omitted in some cases. CLINICAL DECISIONS SHOULD BE BASED ON THE PRIMARY CLINICAL RECORDS. [employer] provides no warranty or guarantee of the accuracy or completeness of information in this document.
== END 2023-02-15 17:27 | disposition home or self-care (01) ==
PROVIDERS: Physician Assistant; Emergency Provider Student in an Organized Health Care Education/Training Program; PCP Internal Medicine; Visit Provider Student in an Organized Health Care Education/Training Program
DX: B34.9 Viral infection, unspecified (principal); E86.0 Dehydration
CPT/HCPCS: 80048; 85025; 87428; 93005; 96361; 96374; 99283; J7030; A4216; J2405